=== PATIENT | male | born 1940 | race Caucasian/White ===

== ENCOUNTER → 2018-06-08 | Outpatient (CLI) | payer MEDICARE ==
[~2018-06-08] MED LIST: AMIODARONE HCL200 MG PO; ATORVASTATIN CA20 MG PO; ATORVASTATIN CA40 MG PO; CALAN SR240 MG PO; DICLOFENAC SODI75 MG PO; DOXAZOSIN MESYLA2 MG PO; DOXAZOSIN MESYLA8 MG PO; ECOTRIN81 MG PO; ENALAPRIL MALE2.5 MG PO; METOPROLOL SUCC25 MG PO; NORCO 7.5-3251 EACH PO; TAMSULOSIN HCL0.4 MG PO; TYLENOL PO; VASOTEC5 MG PO; WARFARIN SODIUM3 MG PO
== END ==
LOC: CARD 13:49
PROVIDERS: ATTEND Internal Medicine
DX: I65.29 Occlusion and stenosis of unspecified carotid artery (principal); I73.9 Peripheral vascular disease, unspecified
CPT/HCPCS: 93880; 93922; 93925

== ENCOUNTER → 2022-05-21 | Day surgery (SDC) | payer MEDICARE, OTHER ==
[2022-05-19 09:34] LABS: BASOPHILS # (AUTO) 0.1 (0.0-0.1); BASOPHILS % 0.4 % (0.0-1.0); EOSINOPHILS # (AUTO) 0.2 (0.0-0.4); EOSINOPHILS % 1.4 % (0.0-6.0); HEMATOCRIT 44.9 % (38.2-49.6); HEMOGLOBIN 14.8 g/dL (14.0-18.0); LYMPHOCYTES # (AUTO) 1.2 (1.0-3.2); LYMPHOCYTES % 9.7 % (18.0-39.1); MEAN CORPUSCULAR HEMOGLOBIN 32.5 pg (28-32); MEAN CORPUSCULAR VOLUME 98.7 fL (81-99); MONOCYTES # (AUTO) 1.1 (0.2-0.8); MONOCYTES % 8.8 % (4.4-11.3); NEUTROPHILS # (AUTO) 9.5 (2.1-6.9); NEUTROPHILS % 79.5 % (38.7-80.0); PLATELET COUNT 259 x10e3/uL (140-360); RED BLOOD COUNT 4.55 x10e6/uL (4.3-5.7)
[~2022-05-21] MED LIST changes: +CENTRUM ADULTS1 EACH PO; +CLOPIDOGREL75 MG PO; +CYMBALTA30 MG PO; +DEXAMETHASONE SOD PHOS 10 MG/1 ML VIAL ONE; +IOPAMIDOL 200 MG/ML 20 ML VIAL IT ONE; +KETAMINE HCL INJ 50 MG/ML 10 ML VIAL IV ONE; +LEVOTHYROXINE75 MCG PO; +LIDOCAINE HCL 1% 30ML-PF VIAL ONE; +LIDOCAINE HCL 2% LOCAL INJ 5 ML SDV VIAL INJ ONE; +MYRBETRIQ50 MG PO; +NAMENDA5 MG PO; +NEURONTIN100 MG PO; +OCUVITE TABLET1 EAC1 PO; +POVIDONE IODINE 0.05% 0.05 % ML PO ONE; +PROPOFOL IV EMULSION 10 MG/ML 20 ML VIAL IV ONE; +ZETIA10 MG PO
[2022-05-21 07:40] VITALS: BP 129/76
== END | disposition home or self-care (01) ==
LOC: OR 05:54
PROVIDERS: ATTEND Physical Medicine & Rehabilitation Pain Medicine
DX: M54.16 Radiculopathy, lumbar region (principal); M48.062 Spinal stenosis, lumbar region with neurogenic claudication; I25.810 Atherosclerosis of coronary artery bypass graft(s) without angina pectoris; E78.00 Pure hypercholesterolemia, unspecified; I10 Essential (primary) hypertension; E78.5 Hyperlipidemia, unspecified; I44.0 Atrioventricular block, first degree; R00.1 Bradycardia, unspecified; K21.9 Gastro-esophageal reflux disease without esophagitis; E03.9 Hypothyroidism, unspecified; R41.3 Other amnesia; Z01.810 Encounter for preprocedural cardiovascular examination; Z01.812 Encounter for preprocedural laboratory examination; Z79.02 Long term (current) use of antithrombotics/antiplatelets; Z79.82 Long term (current) use of aspirin; Z79.899 Other long term (current) drug therapy; Z95.1 Presence of aortocoronary bypass graft; Z95.5 Presence of coronary angioplasty implant and graft
CPT/HCPCS: 36415; 64483; 85025; 93005; J1100; J2001 ×2; J2704; Q9967; 77003

== ENCOUNTER 2024-06-16 14:12 | Emergency (ER) | payer MEDICARE ==
[~2024-06-16] VITALS: Ht 175.3 cm; Wt 77.8 kg
[~2024-06-16 14:12] MED LIST changes: -DEXAMETHASONE SOD PHOS 10 MG/1 ML VIAL ONE; -IOPAMIDOL 200 MG/ML 20 ML VIAL IT ONE; -KETAMINE HCL INJ 50 MG/ML 10 ML VIAL IV ONE; -LIDOCAINE HCL 1% 30ML-PF VIAL ONE; -LIDOCAINE HCL 2% LOCAL INJ 5 ML SDV VIAL INJ ONE; -POVIDONE IODINE 0.05% 0.05 % ML PO ONE; -PROPOFOL IV EMULSION 10 MG/ML 20 ML VIAL IV ONE
[2024-06-16 14:25] VITALS: PULSE 60; RESP 16; TEMP 98.3; O2SAT 94
[2024-06-16] MEDS: LIDOCAINE 1% W/EPINEPHRINE 20 ML VIAL INJ ONE (14:49)
[2024-06-16] MEDS ORDERED: CYMBALTA30 MG (15:02)
[2024-06-16] MEDS ORDERED: ARICEPT5 MG PO (15:02)
[2024-06-16] MEDS ORDERED: PANTOPRAZOLE SO40 MG PO (15:02)
== END 2024-06-16 15:06 | disposition home or self-care (01) ==
LOC: FSED 14:25
DX: S01.511A Laceration without foreign body of lip, initial encounter (principal); W45.8XXA Other foreign body or object entering through skin, initial encounter; Y93.E1 Activity, personal bathing and showering; Y92.89 Other specified places as the place of occurrence of the external cause
CPT/HCPCS: 96372; 99283